=== PATIENT | male | born 1955 | race Caucasian/White ===

== ENCOUNTER 2024-09-27 13:42 | Emergency (ER) | payer OTHER, BC ==
[~2024-09-27] VITALS: Ht 180.3 cm; Wt 111.2 kg
[2024-09-27] MEDS ORDERED: Acetaminophen/Hydrocodone 5 MG/325 MG TABLET PO ONE (14:15)
== END 2024-09-27 16:07 | disposition home or self-care (01) ==
LOC: ED 13:42 → EDSEX 13:45 → ED 13:45
DX: S02.2XXA Fracture of nasal bones, initial encounter for closed fracture (principal); S80.11XA Contusion of right lower leg, initial encounter; S80.12XA Contusion of left lower leg, initial encounter; V23.49XA Other motorcycle driver injured in collision with car, pick-up truck or van in traffic accident, initial encounter; Y93.I9 Activity, other involving external motion; Y92.488 Other paved roadways as the place of occurrence of the external cause; Y99.8 Other external cause status